=== PATIENT | male | born 1990 | race Caucasian/White ===

== ENCOUNTER 2017-09-09 09:16 | Emergency (ER) | payer BC ==
[2017-09-09 10:46] LABS: URINE APPEARANCE CLEAR; URINE BILIRUBIN NEGATIVE (NEGATIVE); URINE BLOOD NEGATIVE (NEGATIVE); URINE COLOR YELLOW; URINE GLUCOSE (UA) NEGATIVE (NEGATIVE); URINE KETONE NEGATIVE (NEGATIVE); URINE LEUKOCYTE ESTERASE NEGATIVE (NEGATIVE); URINE NITRITE NEGATIVE (NEGATIVE); URINE PROTEIN NEGATIVE (NEGATIVE); URINE UROBILINOGEN 0.2 E.U./dL (0.20 - 1.00)
[2017-09-09] MEDS ORDERED: KETOROLAC 30 MG/ML VIAL IM ONE (11:58)
--- NOTE | 2017-09-09 12:40 | Emergency Department Record ---
History of Present Illness - General Chief complaint: Male Urogenital Problem Stated complaint: RT TESTICULAR PAIN Time Seen by Provider: 09/09/17 09:51 Source: Patient Mode of Arrival: Ambulatory Limitations: No limitations - History of Present Illness Initial comments: pt was lifting 600lbs over weekend and now has pain in right groin and testicle. he also has burning w urination Complaint: Testicle pain Onset/Timin -: Days(s) Location: Right inguinal region, Right testicle Radiation: None Severity scale (1-10): 1 Quality: Aching Consistency: Intermittent Improves with: Urination Worsens with: Other Other - Related Data Sexually active: Yes Previous Rx's Medication Instructions Recorded Ibuprofen [Motrin 600Mg] 600 mg PO Q6H #20 tablet 09/09/17 Allergies Allergy/AdvReac Type Severity Reaction Status Date / Time No Known Drug Allergies Allergy Verified 09/09/17 09:46 Travel Screening - Travel/Exposure Within Last 30 Days Have you traveled within the last 30 days?: No - Travel/Exposure Within Last Year Have you traveled outside the [place] in the last year?: No - Additonal Travel Details Have you been exposed to anyone with a communicable illness?: No - Travel Symptoms Symptom Screening: None Review of Systems Reviewed: No additional complaints except as noted below Constitutional: Reports: As per HPI. Denies: Chills, Fever, Malaise, Night sweats, Weakness, Weight change Eyes: Reports: As per HPI. Denies: Eye discharge, Eye pain, Photophobia, Vision change ENT: Reports: As per HPI. Denies: Congestion, Dental pain, Ear pain, Epistaxis , Hearing loss, Throat pain Respiratory: Reports: As per HPI. Denies: Cough, Dyspnea, Hemoptysis, Stridor, Wheezes Cardiovascular: Reports: As per HPI. Denies: Arrhythmia, Chest pain, Dyspnea on exertion, Edema, Murmurs, Orthopnea, Palpitations, Paroxysmal nocturnal dyspnea, Rheumatic Fever, Syncope Endocrine: Reports: As per HPI. Denies: Fatigue, Heat or cold intolerance, Polydipsia, Polyuria Gastrointestinal: Reports: As per HPI. Denies: Abdominal pain, Constipation, Diarrhea, Hematemesis, Hematochezia, Melena, Nausea, Vomiting Genitourinary: Reports: As per HPI, Dysuria, Testicular pain. Denies: Frequency , Hematuria, Incontinence, Retention, Testicular mass, Urgency Musculoskeletal: Reports: As per HPI. Denies: Arthralgia, Back pain, Gout, Joint swelling, Myalgia, Neck pain Skin: Reports: As per HPI. Denies: Bruising, Change in color, Change in hair/ nails, Lesions, Pruritus, Rash Neurological: Reports: As per HPI. Denies: Abnormal gait, Confusion, Headache, Numbness, Paresthesias, Seizure, Tingling, Tremors, Vertigo, Weakness Psychiatric: Reports: As per HPI. Denies: Anxiety, Auditory hallucinations, Depression, Homicidal thoughts, Suicidal thoughts, Visual hallucinations Hematological/Lymphatic: Reports: As per HPI. Denies: Anemia, Blood Clots, Easy bleeding, Easy bruising, Swollen glands Past Medical History - SOCIAL HISTORY Smoking Status: Never smoker Alcohol Use: Occasional Drug Use: Occasional Drug Use Detail:: Marijuana - RESPIRATORY Hx Respiratory Disorders: No - CARDIOVASCULAR Hx Cardio Disorders: Yes Comment:: murmur - NEURO Hx Neuro Disorders: No - GI Hx GI Disorders: No - Hx Genitourinary Disorders: No - ENDOCRINE Hx Endocrine Disorders: No - MUSCULOSKELETAL Hx Musculoskeletal Disorders: No - PSYCH Hx Psych Problems: Yes Hx Anxiety: Yes - HEMATOLOGY/ONCOLOGY Hx Hematology/Oncology Disorders: No Family Medical History Any Significant Family History?: No Hx Depression: Mother Hx Diabetes: Father Hx Stroke: Mother Physical Exam - General General Appearance: Alert, Oriented x3, Cooperative, Mild distress - Head Head exam: Normal inspection - Eye Eye exam: Normal appearance, PERRL, EOMI Pupils: Normal accommodation - ENT ENT exam: Normal exam, Mucous membranes moist, Normal external ear exam, Normal orophraynx Ear exam: Normal external inspection. negative: External canal tenderness Nasal Exam: Normal inspection. negative: Discharge, Sinus tenderness Mouth exam: Normal external inspection, Tongue normal Teeth exam: Normal inspection. negative: Dental caries Throat exam: Normal inspection. negative: Tonsillar erythema, Tonsillar exudate - Neck Neck exam: Normal inspection, Full ROM. negative: Tenderness - Respiratory Respiratory exam: Normal lung sounds bilaterally. negative: Respiratory distress - Cardiovascular Cardiovascular Exam: Regular rate, Normal rhythm, Normal heart sounds - GI/Abdominal GI/Abdominal exam: Soft, Normal bowel sounds. negative: Hernia, Tenderness - Rectal Rectal exam: Deferred - exam: Testicular tenderness (on r), Other (no hernia palpated) - Extremities Extremities exam: Normal inspection, Full ROM, Normal capillary refill. negative: Tenderness - Back Back exam: Reports: Normal inspection, Full ROM. Denies: Muscle spasm, Rash noted, Tenderness - Neurological Neurological exam: Alert, CN II-XII intact, Normal gait, Oriented X3 - Psychiatric Psychiatric exam: Normal affect, Normal mood - Skin Skin exam: Dry, Intact, Normal color, Warm Course Vital Signs 09/09/17 09/09/17 09:33 12:26 Temperature 98.2 F Pulse Rate 56 L Pulse Rate [ 54 L Pulse Ox Probe] Respiratory 18 16 Rate Blood Pressure 146/95 Blood Pressure 148/90 [Left Arm] Pulse Ox 99 100 - Reevaluation(s) Reevaluation #1: 09/09/17 12:56 us shows complex l hydrocele, possible polycele or hematocele. this is the nontender side Medical Decision Making - Lab Data Lab Results 09/09/17 Range/Units 10:30 Urine Color Yellow Urine Appearance Clear Urine pH 8.0 (5.0-8.0) Ur Specific [place] 1.015 (1.002-1.030) Urine Protein Negative (NEGATIVE) Urine Glucose (UA) Negative (NEGATIVE) Urine Ketones Negative (NEGATIVE) Urine Blood Negative (NEGATIVE) Urine Nitrite Negative (NEGATIVE) Urine Bilirubin Negative (NEGATIVE) Urine Urobilinogen 0.2 (0.20 - 1.00) E.U./dL Ur Leukocyte Esterase Negative (NEGATIVE) Disposition Disposition: Discharge Clinical Impression: Strain of muscle of right groin region Hydrocele Qualifiers: Hydrocele type: unspecified Qualified Code(s): N43.3 - Hydrocele, unspecified Disposition: Home, Self-Care Condition: (1) Good Instructions: Hydrocele (ED), Testicle Pain (ED), Groin Strain (ED) Additional Instructions: follow up with urologist. return sooner if worse. motrin for pain Prescriptions: Ibuprofen [Motrin 600Mg] 600 mg PO Q6H #20 tablet Referrals: ESTELITA SONG M.D. [MEDICAL DOCTOR] - Forms: Patient Portal Access Quality - Quality Measures Quality Measures: N/A - Blood Pressure Screening Does Patient Have Any of the Following: No Blood Pressure Classification: Hypertensive Reading Systolic Measurement: 146 Diastolic Measurement: 95 Screening for High Blood Pressure: < First Hypertensive BP, F/U Documented > [ G8950] First Hypertensive Follow-up Interventions: Follow-up with rescreen GT 1 day and LT 4 weeks.
--- NOTE | 2017-09-10 07:30 | ULTRASOUND REPORT ---
EXAM: SCROTAL ULTRASOUND HISTORY: RIGHT SIDED PAIN. TECHNIQUE: Transverse and longitudinal sonographic images of the testes were obtained. Comparison: None. FINDINGS: The right testi measures 3.6 x 2.7 x 2.8 cm and the left testi measures 3.8 x 2.7 x 3.3 cm. Negative for intratesticular mass. Doppler and spectral analysis with color flow was utilized. Arterial and venous flow to both testes. There is a large left hydrocele which contains some internal debris. This could relate to hematocele or pyocele. There is a tiny left epididymal cyst. The epididymides are otherwise unremarkable. IMPRESSION: SLIGHTLY COMPLEX AND LARGE LEFT HYDROCELE. NORMAL FLOW TO BOTH TESTES. JOB NUMBER: [id number] [facility]
== END 2017-09-09 13:20 | disposition home or self-care (01) ==
LOC: ER 09:16
DX: S39.011A Strain of muscle, fascia and tendon of abdomen, initial encounter (principal); N43.3 Hydrocele, unspecified; X50.0XXA Overexertion from strenuous movement or load, initial encounter; X50.3XXA Overexertion from repetitive movements, initial encounter
CPT/HCPCS: 99283; 96372; 99284; 81003; 76870; J1885

== ENCOUNTER 2018-12-27 14:12 | Emergency (ER) | payer BC ==
--- NOTE | 2018-12-27 14:36 | Emergency Department Record ---
History of Present Illness - General Chief Complaint: Shortness of breath Stated Complaint: JAVIER Time Seen by Provider: 12/27/18 14:24 Source: Patient Mode of Arrival: Ambulatory Limitations: No limitations - History of Present Illness Initial Comments: 28 yo male presents after and episode of chest discomfort and shortness of breath at about 11:30am while eating lunch (pizza rolls). He states he woke up feeling normal this morning. He had been splitting wood from 9-11am. He felt a little tired but otherwise no trouble with splitting wood. While sitting at the table the symptoms came on. The symptoms slowly decreased lasting until about noon. He denies any underlying lung disease. He had a murmur as a child. He was diagnosed with a murmur about 4-5 years ago. [place] was [place] problem. No follow up since then. MD Complaint: Chest pain, Shortness of breath Onset/Timin -: Hour(s) Radiation: Other Severity: Moderate Quality: Other Improves With: Nothing Worsens With: Nothing Known History Of: Other (Murmur) Context: Other Associated Symptoms: Chest pain Treatments Prior to Arrival: None - Related Data Previous Rx's Medication Instructions Recorded Ibuprofen [Motrin 600Mg] 600 mg PO Q6H #20 tablet 09/09/17 Allergies Allergy/AdvReac Type Severity Reaction Status Date / Time No Known Drug Allergies Allergy Verified 12/27/18 14:20 Travel Screening - Travel/Exposure Within Last 30 Days Have you traveled within the last 30 days?: No Review of Systems Constitutional: Denies: Chills, Fever, Malaise, Weakness Eyes: Denies: Eye discharge ENT: Denies: Congestion, Throat pain Respiratory: Reports: Dyspnea. Denies: Cough, Hemoptysis, Stridor, Wheezes Cardiovascular: Reports: Chest pain. Denies: Edema, Palpitations, Syncope Endocrine: Denies: Fatigue, Heat or cold intolerance, Polydipsia, Polyuria Gastrointestinal: Denies: Abdominal pain, Diarrhea, Nausea, Vomiting Genitourinary: Denies: Dysuria, Frequency, Hematuria Musculoskeletal: Denies: Arthralgia, Back pain, Myalgia Skin: Denies: Bruising, Change in color, Rash Neurological: Reports: Headache (transient). Denies: Weakness Psychiatric: Denies: Anxiety Hematological/Lymphatic: Denies: Easy bleeding, Easy bruising Past Medical History - SOCIAL HISTORY Smoking Status: Never smoker Alcohol Use: Occasional Drug Use: Heavy Drug Use Detail:: Marijuana - RESPIRATORY Hx Respiratory Disorders: No - CARDIOVASCULAR Hx Cardio Disorders: Yes Comment:: murmur - NEURO Hx Neuro Disorders: No - GI Hx GI Disorders: No - Hx Genitourinary Disorders: No - ENDOCRINE Hx Endocrine Disorders: No - MUSCULOSKELETAL Hx Musculoskeletal Disorders: No - PSYCH Hx Psych Problems: Yes Hx Anxiety: Yes - HEMATOLOGY/ONCOLOGY Hx Hematology/Oncology Disorders: No Family Medical History Any Significant Family History?: Yes Hx Depression: Mother Hx Diabetes: Father Hx Stroke: Mother Physical Exam - General General Appearance: Alert, Oriented x3, Cooperative, No acute distress, Other (Well appearing) Limitations: No limitations - Head Head exam: Atraumatic, Normal inspection - Eye Eye exam: Normal appearance, PERRL. negative: Conjunctival injection, Scleral icterus - ENT ENT exam: Normal exam, Mucous membranes moist Ear exam: Normal external inspection Nasal Exam: Normal inspection Mouth exam: Normal external inspection - Neck Neck exam: Normal inspection - Respiratory Respiratory exam: Normal lung sounds bilaterally. negative: Accessory muscle use, Chest wall tenderness, Decreased breath sounds, Prolonged expiratory, Respiratory distress, Rhonchi, Stridor, Wheezes - Cardiovascular Cardiovascular Exam: Regular rate, Normal rhythm, Normal heart sounds, Systolic murmur (soft over aortic area, mild) Peripheral Pulses: 2+: Radial (R), Radial (L) - GI/Abdominal GI/Abdominal exam: Soft. negative: Tenderness - Rectal Rectal exam: Deferred - exam: Deferred - Extremities Extremities exam: Normal inspection. negative: Pedal edema, Tenderness - Back Back exam: Denies: CVA tenderness (R), CVA tenderness (L) - Neurological Neurological exam: Alert, Oriented X3 - Psychiatric Psychiatric exam: Normal affect, Normal mood - Skin Skin exam: Dry, Intact, Normal color, Warm Course Vital Signs 12/27/18 14:15 Temperature 98.5 F Pulse Rate 60 Respiratory 18 Rate Blood Pressure 134/86 Pulse Ox 99 - Reevaluation(s) Reevaluation #1: ECHO ordered given his history of murmur EKG #1: 14:26 Rate: 54 Rhythm: sinus [place]: normal Intervals: normal ST segments: normal Prior: none Normal EKG 12/27/18 14:39 12/27/18 15:30 No significant abnormal changes on the CBC, CMP, Troponin 12/27/18 15:54 CXR was normal. No abnormalities. 12/27/18 16:08 The ECHO was reviewed. Normal ECHO with EF of 55-60% 12/27/18 16:10 HEART SCORE Negative PERC Negative 12/27/18 16:10 12/27/18 17:28 Repeat Troponin is normal The patient is doing well and is comfortable with DC. DC vitals were reviewed. We discussed at length reasons to immediately return to the ED as well as close follow up. The patient will call the PCP for close follow up of this ED visit to review this visit and the tests performed He was also referred to cardiology for follow up given his murmur Medical Decision Making - Lab Data Result diagrams: 12/27/18 14:40 12/27/18 14:40 Disposition Disposition: Discharge Clinical Impression: Murmur Chest pain Qualifiers: Chest pain type: unspecified Qualified Code(s): R07.9 - Chest pain, unspecified Dyspnea Qualifiers: Dyspnea type: unspecified Qualified Code(s): R06.00 - Dyspnea, unspecified Disposition: Home, Self-Care Condition: (1) Good Instructions: Chest Pain (ED) Additional Instructions: Call your doctor for the next available follow up appointment Review this ER visit and the tests performed with your family doctor Return to the ER for a recheck if worse, any new concerns or questions Referrals: Kaur Jewell M.D. [MEDICAL DOCTOR] - [facility] [Provider Group] Forms: Patient Portal Access Time of Disposition: 17:29 Quality - Quality Measures Quality Measures: N/A - Blood Pressure Screening Does Patient Have Any of the Following: No Blood Pressure Classification: Pre-Hypertensive BP Reading Systolic Measurement: 134 Diastolic Measurement: 86 Screening for High Blood Pressure: < Pre-Hypertensive BP, F/U Documented > [G8950] Pre-Hypertensive Follow-up Interventions: Referral to alternative/primary care provider.
[2018-12-27 14:48] LABS: ABSOLUTE NEUTROPHIL COUNT 5.88; BASO % 0.2 % (0-6); EOS % 0.9 % (0-6); GRAN % 67.5 % (47-80); HEMOGLOBIN 14.5 gm/dl (14.0-18.0); LYMPH % 22.3 % (16-45); MEAN CELL VOLUME 92.3 fl (81-97); MEAN CORPUSCULAR HEMOGLOBIN 31.1 pg (27-33); MEAN CORPUSCULAR HGB CONC 33.7 g/dl (32-36); MEAN PLATELET VOLUME 10.8 fl (7.4-10.4); MONO % 9.1 % (0-9); PLATELET COUNT 285 K/uL (130-400); RED BLOOD COUNT 4.66 M/uL (4.40-5.70); WHITE BLOOD COUNT W/O DIFF 8.7 K/uL (4.2-12.2)
[2018-12-27 15:01] LABS: BLOOD UREA NITROGEN 9 mg/dL (6-20); CREATININE 0.7 mg/dL (0.7-1.2); EST GLOMERULAR FILTRATION RATE > 60 mL/min
[2018-12-27 15:02] LABS: TOTAL PROTEIN 6.5 g/dL (6.6-8.7)
[2018-12-27 15:04] LABS: GLUCOSE,RANDOM 119 mg/dL (74-109)
[2018-12-27 15:06] LABS: ALT/SGPT 37 U/L (<41); AST/SGOT 27 U/L (10.0-50.0)
[2018-12-27 15:07] LABS: ALBUMIN 4.3 g/dL (4.0-5.0); ALKALINE PHOSPHATASE 91 U/L (40-129)
== END 2018-12-27 17:43 | disposition home or self-care (01) ==
LOC: ER 14:12
DX: R01.1 Cardiac murmur, unspecified (principal); R07.89 Other chest pain; R06.00 Dyspnea, unspecified; R51 Headache
CPT/HCPCS: 71046; 80053; 84484; 85025; 93005; 93010; 93306; 99284